=== PATIENT | male | born 2000 | race Caucasian/White ===

== ENCOUNTER 2023-08-16 01:36 | Inpatient (IN) | payer OTHER, SELFPAY ==
[2023-08-16 01:58] VITALS: BP 170/88; PULSE 100; O2SAT 100
[2023-08-16 02:04] VITALS: BP 146/85; PULSE 90; RESP 18; TEMP 37.1; O2SAT 97; BMI 24.0
--- NOTE | 2023-08-16 02:33 | ED_ITS ---
HPI - General Adult General Chief complaint: Behavioral Concerns Stated complaint: PARANOIA X DAYS PER EMS Time Seen by Provider: 08/16/23 01:59 Source: patient and EMS Mode of arrival: EMS Limitations: no limitations History of Present Illness HPI narrative: 23-year-old male came in by ambulance as a family concern about patient behavior and becoming paranoid. Patient stated that he has talked to 2 different therapist in the past but never been diagnosed with mental illness in the past, patient is not taking no medication for any reason, admitted that he smokes tobacco and smokes marijuana occasionally, otherwise patient do not use any recreational drugs, patient lives home with his parents has dogs home, sometimes hear voices talking to him unable to tell me what they tell him, patient otherwise feels anxious and depressed but no SI or HI. No headache, no CP, no SOB, no abdominal pain. Related Data Allergies Allergy/AdvReac Type Severity Reaction Status Date / Time No Known Allergies Allergy Verified 08/16/23 02:14 [No Known Allergies*] Review of Systems 2 Review of Systems: All other systems are reviewed and are negative Constitutional: Reports as per HPI and Reports no additional constitutional complaints Eyes: Reports as per HPI and Reports no additional eye complaints Reports system reviewed and no additional complaints, except as documented Cardiovascular: Reports as per HPI and Reports no additional cardiovascular complaints Respiratory: Reports as per HPI and Reports no additional respiratory complaints Gastrointestinal: Reports as per HPI and Reports no additional gastrointestinal complaints Genitourinary: Reports no additional female genitourinary complaints Musculoskeletal: Reports no additional musculoskeletal complaints Skin/Breast: Reports system reviewed and no additional complaints, except as docu Psychiatric: Reports no additional psychiatric complaints Endocrine: Reports no additional endocrine complaints Hematologic/Lymphatic: Reports no additional hematologic/lymphatic complaints Allergic/Immunologic: Reports no additional allergic/immunologic complaints Reports system reviewed and no additional complaints, except as documented and Reports Abnormal speech present [facility] Social History Social History Smoked in Last 30 Days: Yes Use of substances other than those prescribed or required for medical reasons: Yes Substance Use Type: Marijuana Advance Directives: No Advance Directives Information Provided: No Physical Exam ED Vital Signs: Vital Signs - 24 hr 08/16/23 02:04 08/16/23 03:26 08/16/23 04:28 Temperature 98.7 F 98.5 F 97.7 F Pulse Rate 90 58 98 Respiratory Rate 18 14 18 Blood Pressure 146/85 H 140/76 H 137/72 Pulse Oximetry 97 100 100 Oxygen Delivery Method Room Air Room Air Room Air BMI result Body Mass Index 24.0 Vital signs have been reviewed and appear to be correct. Blood pressure elevated. Heart rate normal. Respiratory rate normal. Temperature normal. Oxygen saturation normal. Appearance: Alert. Oriented X3. No acute distress. Head: Normal external exam. Normocephalic. Atraumatic. No Wong signs noted. No raccoon eyes noted Eyes: PERRLA. EOMI. Conjunctiva and sclera normal. Eyelids normal. ENT: TM's Normal. Pharynx normal. Uvula midline. Moist mucous membranes. No trismus noted. No drooling noted. No muffled voice noted. Neck: Normal inspection. Neck supple. FROM. No adenopathy. Thyroid Normal. No meningeal signs. No neck mass noted. CVS: Normal heart rate and rhythm. Heart sound normal. No murmurs noted. Pulses normal throughout. Respiratory: No respiratory distress. Painless inspiration. Breath sounds normal. No wheezes/rales/rhonchi noted. Chest nontender. No accessory muscle usage noted or decreased air movement noted. Abdomen: Soft and nontender. Bowel sounds normal in all 4 quadrants. No distention noted. No organomegaly noted. No visible injury noted. Back: No CVA tenderness. Full range of motion noted. Skin: Skin warm and dry. Normal skin color. Normal skin turgor. No rashes/lesions/lacerations noted. Extremities: No lower extremity edema. Extremities exhibit normal range of motion. Extremities nontender. Neuro: Oriented X 3. Cranial nerve exam: II-XII are grossly intact No motor deficit. No sensory deficit. Reflexes normal. Patient Orientation: Person, Place, Time and Situation, okay hygiene and grooming. Fair eye contact, attentive, no tics or tremors. Level of Consciousness: Awake, Appropriate and Alert Patient Behavior: Appropriate, Guarded, Cooperative and Anxious Mood Description: Constricted, Blunted and Apprehensive Affect Description: Constricted, Blunted and Apprehensive Patient Cognition Impaired: No Ability to Follow Directions: Excellent Speech Pattern: Clear, Appropriate and Spontaneous Speech, nonpressured, spontaneous with regular rate and rhythm, normal volume and prosody. No dysarthria. Memory Description: Intact, Immediate Intact and Short Term Intact Hallucinations: None Delusions: Not Present Thought Process: Intact Thought Content: positive for Intact, positive for Logical, denies Suicidal Ideation and denies Homicidal Ideation. Depressive Symptoms: Not present. Judgement and Insight: Limited but adequate. Course Reevaluation(s) Reevaluation #1: Will start physician observation, medically cleared await for UA and U tox, care team evaluation. Time: 06:29 Medical Decision Making Differential Diagnosis Differential Diagnoses: The differential diagnosis associated with the presentation includes (Medical clearance, psych evaluation.) Admission/Observation Consideration of admission/observation: Escalation of care including admission/observation considered Lab Data 08/16/23 03:28 08/16/23 03:28 Labs: Lab Results 08/16/23 Range/Units 03:28 WBC 11.2 H (4.8-10.8) X10*3/uL RBC 5.19 (4.60-5.80) X10*6/uL Hgb 14.9 (14.0-18.0) g/dl Hct 43.8 (42.0-52.0) % MCV 84.4 (80.0-98.0) fL MCH 28.7 (27.0-33.0) pg MCHC 34.0 (31.0-36.0) g/dl RDW 12.7 (11.0-16.0) % Plt Count 230 (160-400) X10*3/uL MPV 9.1 L (9.4-12.4) fL Immature Gran % (Auto) 0.3 (0.0-0.4) % Neut % (Auto) 70.5 (45-73) % Lymph % (Auto) 20.7 (20-40) % [place] % (Auto) 7.2 (2-11) % Eos % (Auto) 0.9 (0-4) % Baso % (Auto) 0.4 (0-2) % Lymph # (Auto) 2.3 (1.2-4.9) X10*3/uL [place] # (Auto) 0.8 (0.1-1.2) X10*3/uL Eos # (Auto) 0.1 (0.0-0.4) X10*3/uL Baso # (Auto) 0.1 (0.0-0.2) X10*3/uL Abs Immat Gran (auto) 0.03 (0.00-0.03) X10*3/uL Absolute Neuts (auto) 7.9 (2.0-8.3) x10*3/uL Absolute Nucleated RBC 0.000 (0.0-0.012) X10*3/uL Nucleated RBC % (auto) 0.0 (0.0-0.2) /100WBC Sodium 142 (135-145) mmol/L Potassium 3.9 (3.3-5.1) mmol/L Chloride 105 (96-108) mmol/L Carbon Dioxide 24 (22-29) mmol/L Anion Gap 17 (12-20) BUN 15 (9-16) mg/dL Creatinine 1.01 (0.5-1.4) mg/dL Estim Creat Clear Calc 125.9 Estimated GFR > 60 Random Glucose 90 (60-115) mg/dL Calcium 10.2 (8.4-10.2) mg/dL Discharge Plan Discharge Clinical Impression: Acute anxiety Patient Disposition: Still a Patient
[2023-08-16 03:26] VITALS: BP 140/76; PULSE 58; RESP 14; TEMP 36.9; O2SAT 100
[2023-08-16 03:33] LABS: Basophils Absolute Auto 0.1 X10*3/uL (0.0-0.2); Basophils Percent Auto 0.4 % (0-2); Eosinophils Absolute Auto 0.1 X10*3/uL (0.0-0.4); Eosinophils Percent Auto 0.9 % (0-4); Hematocrit 43.8 % (42.0-52.0); Hemoglobin 14.9 g/dl (14.0-18.0); Imm Gran Abs Auto 0.03 X10*3/uL (0.00-0.03); Imm Gran Pct Auto 0.3 % (0.0-0.4); Lymphocytes Absolute Auto 2.3 X10*3/uL (1.2-4.9); Lymphocytes Percent Auto 20.7 % (20-40); MANUAL DIFF FLAG NO; Mean Corpuscular Hemoglobin 28.7 pg (27.0-33.0); Mean Corpuscular Volume 84.4 fL (80.0-98.0); Mean Platelet Volume 9.1 fL (9.4-12.4); Monocytes Absolute Auto 0.8 X10*3/uL (0.1-1.2); Monocytes Percent Auto 7.2 % (2-11); Neutrophils Absolute Auto 7.9 x10*3/uL (2.0-8.3); Neutrophils Percent Auto 70.5 % (45-73); Platelet Count 230 X10*3/uL (160-400); Red Blood Count 5.19 X10*6/uL (4.60-5.80); Red Cell Distribution Width 12.7 % (11.0-16.0); White Blood Count 11.2 X10*3/uL (4.8-10.8)
[2023-08-16 03:46] LABS: Anion Gap 17 (12-20); Blood Urea Nitrogen 15 mg/dL (9-16); Calcium 10.2 mg/dL (8.4-10.2); Carbon Dioxide 24 mmol/L (22-29); Chloride 105 mmol/L (96-108); Creatinine Clr Calc Pharmacy 125.9; Estimated Glomerular Filt Rate > 60; Glucose Random 90 mg/dL (60-115); Potassium 3.9 mmol/L (3.3-5.1); Sodium 142 mmol/L (135-145)
[2023-08-16 04:28] VITALS: BP 137/72; PULSE 98; RESP 18; TEMP 36.5; O2SAT 100
--- NOTE | 2023-08-16 04:43 | MHC.EDTECH ---
Patient was placed into crisis attire,belongings list completed,and copy placed in chart, all belongings are locked in the pod in the laundry closet. Patient was calm and cooperative with loom changeover operator. Hourly rounds and vitals completed, awaiitng a urine sample at this time,water given per request.
--- NOTE | 2023-08-16 06:24 | MHC.EDTECH ---
Attempted to get a urine sample ,patient stated I will give you one when I have to go. RN aware
[2023-08-16 08:42] VITALS: BP 151/84; PULSE 75; RESP 14; TEMP 37.1; O2SAT 100
--- NOTE | 2023-08-16 08:44 | PC.NURSE ---
Pt is alert and oriented x 4, calm and cooperative. Aware that being here is due to family having concerns for his well being at home although unable to give specifics. States he has no concerns for himself and feels safe at home. Denies SI or HI. Good eye contact. Noted to at times make statements not appropriate to conversation. Such as can you put the pills on my plate no meds were being administered at that time and questioned voiding in drinking cup instead of urine specimen cup provided. Urine obtained/sent. Reports 10/ ankle and back pain. Ankles noted with superficial scabbed cuts that pt states is from ankle weights and reports mid back pain from recently climbing a tree. Ambulatory with a steady gait to bathroom. Ate breakfast. No home meds. Awaits CARE team consult.
[2023-08-16 08:48] LABS: Appearance Urine Clear; Color Urine Yellow; Glucose Urine UA Negative (Negative); Leukocyte Esterase Urine Negative (Negative); Nitrite Urine Negative (Negative); Specific Gravity - Urine 1.015 (1.005-1.025); Urine Blood Negative (Negative); Urine Ketones 15 mg/dL (Negative); Urine Protein Negative (Neg-Trace)
[2023-08-16 08:52] LABS: Amphetamine Screen Urine Not Detected (Not Detect); Barbiturates, Urine Not Detected (Not Detect); Benzodiazepines Screen Urine Not Detected (Not Detect); Cannabinoid Screen Urine POSITIVE (Not Detect); Cocaine Screen Urine Not Detected (Not Detect); Fentanyl, urine Not Detected (Not Detect); Opiate Screen Urine Not Detected (Not Detect); Phencyclidine Screen Urine Not Detected (Not Detect)
--- NOTE | 2023-08-16 09:25 | PC.NURSE ---
Consult with CARE team at this time
--- NOTE | 2023-08-16 10:44 | MHC.CARE ---
Patient evaluated by CARE Team, will need inpatient psychiatric treatment. ED provider Dr. Nagy updated.
--- NOTE | 2023-08-16 12:18 | PC.NURSE ---
Pt is sleeping at this time, 1:1 pt observer at side. +Bedsearch. Godmother here to visit although pt declined a visitor at that time.
--- NOTE | 2023-08-16 16:37 | PC.NURSE ---
this nurse was notified that pt was refusing to come out of the bathroom. pt observed to be standing,responding appropriately to nurses questions. per pt request security called to intervene. pt to go to pod
--- NOTE | 2023-08-16 18:28 | PC.NURSE ---
Pt brought over from main ED to pod, patient present with odd affect, presents with good mood that is not necessarily congruent with situation
[2023-08-16 19:46] VITALS: BP 191/94; PULSE 115; RESP 18
--- NOTE | 2023-08-16 22:49 | MHC.CARE ---
RAD Team [place] bed[place], referral being reviewed by Dru Julian Corrigan, [facility] and [facility]. RAD team to f/u with facilities to see outcome
[2023-08-17 05:16] VITALS: RESP 18
--- NOTE | 2023-08-17 05:51 | PC.NURSE ---
Patient slept through the night, no distress observed/reported, per report patient was during the day engaged well with care team assessment, However as evening progresses patient was quiet, refused to engage in conversation, isolative, starring with glazed look, offered Ativan 2 mg po and Olanzapine 10 mg Po but refused to take, currently in bed appears sleeping, disposition per care team is section 12 inpatient bed search, will continue to monitor.
--- NOTE | 2023-08-17 09:25 | PC.NURSE ---
pt had his cousin Clara come top the ed to visit, pt laying in bed and was asleep, cole delatorre, pt stated that he did not want a visitor, pt was minimally verbal and needed to be asked multiple times, warm blanket provided, covid swab done, pt did not answer any questions initially and then minimally verbal with yes or no responses, clara left a caring note for him with her # on it and i gave it to the pt
[2023-08-17 10:18] LABS: COVID-19 Test Negative (Negative); IDNOW Serial# 08D9AD1C
--- NOTE | 2023-08-17 11:24 | MHC.CARE ---
Call from patient's sister, Yakelin, who said she reached out to some of her brother's close friends trying to understand the sequence of events and what they noticed. On of patient's friends said that he had been experimenting with mushrooms and last week mentioned he wanted to buy more.
[2023-08-17] MEDS: LORazepam 2 MG/ML VIAL IM (11:58)
--- NOTE | 2023-08-17 12:03 | PC.NURSE ---
Treasure ELECTRICAL LINEMAN in to see pt, pt catatonic and ativan 2mg IM ordered and given, pt willingly took it, pt sitting cross legged in bed, nad, skin wpd, no verbal response but held his arm out for the IM
[2023-08-17 13:17] VITALS: BP 147/95; PULSE 89; RESP 16; TEMP 36.9; O2SAT 99
[2023-08-17 14:34] VITALS: BP 138/88; PULSE 111; RESP 20; TEMP 36.3; O2SAT 98
--- NOTE | 2023-08-17 17:16 | PC.ADMIT ---
Pt is a 23 y/o uzbek speaking male admitted from the [facility] ED on a CV. Pt was brought to the ED after his family called the EMS with concerns r/t pts behavioral changes. Pt has been disorganized, delusional, paranoid and AH. Pt has been driving to places in the middle of the night when they are closed, like [employer] in [place], or yelling at step sister for looking at him through the espinoza. Pt was seen by MANAGER OF MERCHANDISING Treasure Chavarria in the ED and appeared catatonic. Pt was given Ativan 2 mg and responded by awaking and becoming verbal. Pt was A&O x3 , thoughts were disorganized. Speech was mumbled at times with poor eye contact. Pt suspicious and says, I noticed my friends have been treating me differently and looking at me different in a bad way . Pt appeared preoccupied and having some thought blocking with delayed responses. Pt initially said he was having AH recently, but then said he wasn't. Pt will engage, but struggles to answer questions that are asked. Pt has no acute medical concerns. Tox screen positive for THC. Pt refused to sign any releases. When signing belongings form he signed TW name instead of his own. Pts skin check completed, skin is intact. Pt refused a flu vaccine when offered. Pt placed on 15 minute checks. Pt refused scheduled Ativan saying, I don't brigido it, thats how I am , reffering to catatonia behavior. Pt educated, but refused.
[2023-08-17] MEDS: LORazepam 1 MG TABLET 2 MG PO (21:39)
[2023-08-18 07:10] VITALS: BP 171/89; PULSE 116; TEMP 36.8; O2SAT 99
--- NOTE | 2023-08-18 08:24 | HO.PSYADMNOT ---
HPI Date of Service: 08/18/23 Chief Complaint: SI Sources of Information: patient interviewed, chart reviewed and crisis/core team assessment reviewed HPI Subjective Notes: Parekh Warning (given and shows understanding) and Conditional Voluntary Narrative: Mr. Meza is a 23 year-old male with no prior hx of psychosis who was brought in by family due to pt presenting with bizarre behaviors reporting people could see him through the wall, thinking people were talking about him or going after him. In the ED his utox was positive for canabinoids. He presented with s/s of catatonia, sitting, staring, minimal verbalization and waxy flexibility. He was given ativan 2mg IM with good effect. On the unit, pt is more talkative but continues to present as internally preoccupied. He reports friends were talking about him. He is not sure about concerns that others had about him as he states I did not hurt anyone. He denies SI/HI. At times some delayed responses which suspect is due to being internally preoccupied. He reports hx of depression for which he had therapy. He denies hx of suicide attempts. He also denies prior hx of psychosis. Pt denies difficulty sleeping but family had reported he was found at night in the car staring. Past Psychiatric History: Inpt: none prior OP: none Hx of suicide attempts: none Past medication trials: none Medical Evaluation Reviewed: Yes [facility] Family History: pt states we all do but I am not sure- referring to parents and sibling hx of mental illness. Social History: pt lives with parents. No children. He reports he works at [employer] and also does stand up Vitrina 3 times a week. Substance History: cannabis on and off for the past 2 years. Trauma History: denies Diagnostics Vital Signs (24Hr): Vital Signs - 24 hr 08/17/23 13:17 08/17/23 14:34 08/18/23 07:10 Temperature 98.4 F 97.3 F 98.2 F Pulse Rate 89 111 H 116 H Respiratory Rate 16 20 Blood Pressure 147/95 H 138/88 171/89 H Pulse Oximetry 99 98 99 Oxygen Delivery Method Room Air Room Air Room Air BMI result Body Mass Index 24.0 Labs 08/16/23 03:28 08/18/23 08:13 Labs: Laboratory Results - last 48 hr 08/16/23 08/17/23 08:37 09:26 Urine Color Yellow Urine Appearance Clear Urine pH 6.0 Ur Specific [place] 1.015 Urine Protein Negative Urine Glucose (UA) Negative Urine Ketones 15 Urine Blood Negative Urine Nitrite Negative Ur Leukocyte Esterase Negative Urine Opiates Screen Not Detected Urine Fentanyl Screen Not Detected Ur Barbiturates Screen Not Detected Ur Phencyclidine Scrn Not Detected Ur Amphetamines Screen Not Detected U Benzodiazepines Scrn Not Detected Urine Cocaine Screen Not Detected U Marijuana (THC) Screen POSITIVE H COVID-19 (АЛЕКСАНДР) Negative COVID-19 Clin Com See Note Meds/Allergies Meds Home Medications Medication Instructions Recorded Confirmed Type No Known Home Meds 08/16/23 08/16/23 History Allergies Allergies Allergy/AdvReac Type Severity Reaction Status Date / Time No Known Allergies Allergy Verified 08/16/23 02:14 [No Known Allergies*] Mental Status Exam Mental Status Exam Narrative: Appearance: wearing hospital gown, fair hygiene, in NAD Behavior: guarded, looking through this credit underwriter at times as internally preoccupied Psychomotor less retardation noted after ativan. Speech: mostly clear, some delayed in response, more spontaneous TP: single word answers TC: confused as to what's going on but in agreement to receive tx Mood: okay Affect: constricted SI: denies HI: denies VH/AH: appears internally preoccupied Delusions: underlying paranoid delusions Insight/judgment: slowly improving Memory/cog: alert, oriented to place, confused as to what brought him here and why others were concerned about him Assessment & Plan Assessment & Plan (1) Psychosis: Status: Acute Code(s): F29 - Unspecified psychosis not due to a substance or known physiological condition Plan Mr. Meza is a 23 year-old male who was brought by family due to presenting with unusual behaviors reporting that he thought people were after him, able to see him through the wall, not sleeping. In the ED, he presented as catatonic- blank stare, mutism, waxy flexibility. Given ativan 2mg IM with good effect. Although somewhat improved he continues to present with delayed response rate, some paranoid delusions although his behavior is more organized. We discussed risks, benefits and alternative treatment options, he agree to try low dose of risperidone 0.5mg po BID. Will continue lower dose of ativan as catatonic symptoms have improved. rule out bipolar disorder. PLAN 1. Admit to M3, CV, 15 minutes checks 2. lower ativan 0.5mg po TID- monitor worsening of catatonia 3. low dose risperidone 0.5mg po BID. 4. obtain collateral information 5. aftercare planning Patient educated on: diagnosis and medication risk/benefits Reason for continued inpatient stay Substantial Risk for: inability to function Statement Statement: I have reviewed the history and physical and performed a pertinent examination on my patient. No changes have occurred unless specified. If the History and Physical was not performed prior to admission, the Hospitalist's service will be consulted for completing the admission physical. Time Spent With Patient Time: Total time managing care of this patient today ____ minutes.
[2023-08-18 08:52] LABS: Estimated Average Glucose 94 mg/dL; Hemoglobin A1c % 4.9 % (<6.0)
[2023-08-18 09:11] LABS: Alanine Aminotransferase 25 U/L (0-40); Albumin Level 4.7 g/dL (3.5-5.0); Alkaline Phosphatase 84 U/L (39-117); Anion Gap 16 (12-20); Aspartate Amino Transferase 36 U/L (5-37); Bilirubin Total 1.7 mg/dL (0.0-1.0); Blood Urea Nitrogen 23 mg/dL (9-16); Calcium 10.4 mg/dL (8.4-10.2); Carbon Dioxide 24 mmol/L (22-29); Chloride 104 mmol/L (96-108); Cholesterol 147 mg/dL (<200); Creatinine Clr Calc Pharmacy 103.3; Estimated Glomerular Filt Rate > 60; Glucose Fasting 80 mg/dL (60-99); HDL Cholesterol 50 mg/dL (>40); LDL Cholesterol Calculated 82 mg/dL (<100); Potassium 4.3 mmol/L (3.3-5.1); Sodium 140 mmol/L (135-145); Triglycerides 76 mg/dL (<150)
[2023-08-18 09:26] LABS: Thyroid Stimulating Hormone 1.03 uIU/mL (0.32-4.0)
[2023-08-18 09:33] LABS: Vitamin B12 328 pg/mL (200-900)
[2023-08-18 14:00] VITALS: BP 131/83; PULSE 70; RESP 18; TEMP 36.9; O2SAT 100
[2023-08-18] MEDS: LORazepam 1 MG TABLET 2 MG PO (15:09)
[2023-08-18 19:50] VITALS: BP 138/81; PULSE 58; RESP 16; TEMP 36.6; O2SAT 99
[2023-08-18] MEDS: LORazepam 0.5 MG TABLET PO (21:08)
[2023-08-18] MEDS: risperiDONE 0.5 MG TABLET PO (21:08)
[2023-08-18 22:00] VITALS: BP 138/80; PULSE 60; RESP 18; TEMP 36.6; O2SAT 99
[2023-08-19 07:35] VITALS: BP 138/85; PULSE 92; RESP 16; TEMP 36.2; O2SAT 97
[2023-08-19] MEDS: risperiDONE 0.5 MG TABLET PO (08:07)
[2023-08-19] MEDS: LORazepam 0.5 MG TABLET PO ×3 (08:07→20:26)
--- NOTE | 2023-08-19 09:07 | PC.NURSE ---
Offered pt a paper copy of the safety tool. Pt showed little interest in completing it, placed it on his bookshelf, and went back to reading his graphic novel. Will attempt to offer safety tool again later.
--- NOTE | 2023-08-19 11:51 | HO.PSYCHPN ---
Subjective Subjective Date of Service: 08/19/23 Reason For Visit: SI Subjective Notes: Conditional Voluntary Interim History: Nursing staff reported the patient had been flat withdrawn, compliant with medications but not attending to any groups. On interview the patient was selectively mute we decided to increase his Risperdal to 1 mg p.o. b.i.d.. Mental Status Exam Mental Status Exam Patient Appearance: Appropriate Patient Orientation: Person and Situation Level of Consciousness: Awake Patient Behavior: Guarded and Suspicious Mood Description: Withdrawn Affect Description: Constricted Patient Cognition Impaired: Yes Ability to Follow Directions: Fair Speech Pattern: Clear Hallucinations: None Delusions: Paranoid Ideation and Ideas of Reference Thought Process: Distracted and Slowed Thinking Thought Content: positive for [place] and positive for Poverty of Content Judgement: Poor Diagnostics Vital Signs (24Hr): Vital Signs - 24 hr 08/18/23 14:00 08/18/23 19:50 08/18/23 22:00 Temperature 98.4 F 97.8 F 97.8 F Pulse Rate 70 58 60 Respiratory Rate 18 16 18 Blood Pressure 131/83 138/81 138/80 Pulse Oximetry 100 99 99 Oxygen Delivery Method Room Air Room Air Room Air 08/19/23 07:35 Temperature 97.1 F Pulse Rate 92 Respiratory Rate 16 Blood Pressure 138/85 Pulse Oximetry 97 Oxygen Delivery Method Room Air BMI result Body Mass Index 24.0 Labs 08/16/23 03:28 08/18/23 08:13 Labs: Laboratory Results - last 48 hr 08/18/23 08:13 Sodium 140 Potassium 4.3 Chloride 104 Carbon Dioxide 24 Anion Gap 16 BUN 23 H Creatinine 1.23 Estim Creat Clear Calc 103.3 Estimated GFR > 60 Fasting Glucose 80 Estimat Average Glucose 94 Hemoglobin A1c % 4.9 Calcium 10.4 H Total Bilirubin 1.7 H AST 36 ALT 25 Alkaline Phosphatase 84 Total Protein 8.0 Albumin 4.7 Triglycerides 76 Cholesterol 147 LDL Cholesterol, Calc 82 HDL Cholesterol 50 Vitamin B12 328 TSH 1.03 Medications Medications Current Medications Acetaminophen (Acetaminophen 325 Mg Tablet) 650 mg PO Q6H PRN PRN Reason: Headache/Pain Mild Scale (1-3) Al Hydroxide/Mg Hydroxide (Magnesium Hydrox/Alum Hydrox 30 Ml Oral.Susp) 30 ml PO Q6H PRN PRN Reason: Heartburn/Nausea Hydroxyzine HCl (Hydroxyzine Hcl 25 Mg Tablet) 25 mg PO Q6H PRN PRN Reason: Anxiety Lorazepam (Lorazepam 0.5 Mg Tablet) 0.5 mg PO TID [facility] Last Admin: 08/19/23 08:07 Dose: 0.5 mg Magnesium Hydroxide (Milk Of Magnesia 30 Ml Oral.Susp) 30 ml PO DAILY PRN PRN Reason: Constipation Nicotine Polacrilex (Nicotine Polacrilex 2 Mg Gum) 2 mg BUCCAL Q2H PRN PRN Reason: Smoking cravings Risperidone (Risperidone 1 Mg Tablet) 1 mg PO BID STEFFANIE Trazodone HCl (Trazodone Hcl 50 Mg Tablet) 50 mg PO BEDTIME PRN PRN Reason: Insomnia Allergies Allergies Allergy/AdvReac Type Severity Reaction Status Date / Time No Known Allergies Allergy Verified 08/16/23 02:14 [No Known Allergies*] Assessment & Plan Assessment & Plan (1) Psychosis: Status: Acute Code(s): F29 - Unspecified psychosis not due to a substance or known physiological condition Plan Mr. Meza is a 23 year-old male who was brought by family due to presenting with unusual behaviors reporting that he thought people were after him, able to see him through the wall, not sleeping. In the ED, he presented as catatonic- blank stare, mutism, waxy flexibility. Given ativan 2mg IM with good effect. Although somewhat improved he continues to present with delayed response rate, some paranoid delusions although his behavior is more organized. We discussed risks, benefits and alternative treatment options, he agree to try low dose of risperidone 0.5mg po BID. Will continue lower dose of ativan as catatonic symptoms have improved. rule out bipolar disorder. PLAN 1. Admit to M3, CV, 15 minutes checks 2. lower ativan 0.5mg po TID- monitor worsening of catatonia 3. low dose risperidone 0.5mg po BID. Increased up to 1 mg po bid on 08/19 4. obtain collateral information 5. aftercare planning Reason for continued inpatient stay Substantial Risk for: inability to function, rapid decompensation and med/psych decompensation Time Spent With Patient Time: Total time managing care of this patient today __20__ minutes.
[2023-08-19 18:00] VITALS: BP 130/84; PULSE 96; RESP 16; TEMP 36.4; O2SAT 96
[2023-08-19] MEDS: risperiDONE 1 MG TABLET PO (20:25)
[2023-08-20 07:30] VITALS: BP 136/74; PULSE 73; RESP 16; TEMP 36.5; O2SAT 99
[2023-08-20] MEDS: LORazepam 0.5 MG TABLET PO ×3 (08:50→22:22)
[2023-08-20] MEDS: risperiDONE 1 MG TABLET PO ×2 (08:50→22:22)
--- NOTE | 2023-08-20 13:46 | HO.PSYCHPN ---
Subjective Subjective Date of Service: 08/20/23 Reason For Visit: SI Subjective Notes: Conditional Voluntary Interim History: The nursing staff reported the patient had presented with some thought blocking, he wants to go with all his books and belongings to the shower and he has some bizarre ideas. He had been more social in the unit. He slept 8 hours. On interview the patient denies new symptoms he reports that he is feeling well. Looks internally preoccupied. Mental Status Exam Mental Status Exam Patient Appearance: Appropriate Patient Orientation: Person and Situation Level of Consciousness: Awake Patient Behavior: Guarded and Suspicious Mood Description: Withdrawn Affect Description: Constricted Patient Cognition Impaired: Yes Ability to Follow Directions: Good Speech Pattern: Clear Hallucinations: None Delusions: Ideas of Reference Thought Process: Distracted and Slowed Thinking Thought Content: positive for [place] and positive for Poverty of Content Judgement: Fair Diagnostics Vital Signs (24Hr): Vital Signs - 24 hr 08/19/23 18:00 08/20/23 07:30 Temperature 97.5 F 97.7 F Pulse Rate 96 73 Respiratory Rate 16 16 Blood Pressure 130/84 136/74 Pulse Oximetry 96 99 Oxygen Delivery Method Room Air Room Air BMI result Body Mass Index 24.0 Labs 08/16/23 03:28 08/18/23 08:13 Medications Medications Current Medications Acetaminophen (Acetaminophen 325 Mg Tablet) 650 mg PO Q6H PRN PRN Reason: Headache/Pain Mild Scale (1-3) Al Hydroxide/Mg Hydroxide (Magnesium Hydrox/Alum Hydrox 30 Ml Oral.Susp) 30 ml PO Q6H PRN PRN Reason: Heartburn/Nausea Hydroxyzine HCl (Hydroxyzine Hcl 25 Mg Tablet) 25 mg PO Q6H PRN PRN Reason: Anxiety Lorazepam (Lorazepam 0.5 Mg Tablet) 0.5 mg PO TID [facility] Last Admin: 08/20/23 08:50 Dose: 0.5 mg Magnesium Hydroxide (Milk Of Magnesia 30 Ml Oral.Susp) 30 ml PO DAILY PRN PRN Reason: Constipation Nicotine Polacrilex (Nicotine Polacrilex 2 Mg Gum) 2 mg BUCCAL Q2H PRN PRN Reason: Smoking cravings Risperidone (Risperidone 1 Mg Tablet) 1 mg PO BID [facility] Last Admin: 08/20/23 08:50 Dose: 1 mg Trazodone HCl (Trazodone Hcl 50 Mg Tablet) 50 mg PO BEDTIME PRN PRN Reason: Insomnia Allergies Allergies Allergy/AdvReac Type Severity Reaction Status Date / Time No Known Allergies Allergy Verified 08/16/23 02:14 [No Known Allergies*] Assessment & Plan Assessment & Plan (1) Psychosis: Status: Acute Code(s): F29 - Unspecified psychosis not due to a substance or known physiological condition Plan Mr. Meza is a 23 year-old male who was brought by family due to presenting with unusual behaviors reporting that he thought people were after him, able to see him through the wall, not sleeping. In the ED, he presented as catatonic- blank stare, mutism, waxy flexibility. Given ativan 2mg IM with good effect. Although somewhat improved he continues to present with delayed response rate, some paranoid delusions although his behavior is more organized. We discussed risks, benefits and alternative treatment options, he agree to try low dose of risperidone 0.5mg po BID. Will continue lower dose of ativan as catatonic symptoms have improved. rule out bipolar disorder. PLAN 1. Admit to M3, CV, 15 minutes checks 2. lower ativan 0.5mg po TID- monitor worsening of catatonia 3. low dose risperidone 0.5mg po BID. Increased up to 1 mg po bid on 08/19, no evidence of side effects. 4. obtain collateral information 5. aftercare planning Reason for continued inpatient stay Substantial Risk for: inability to function, rapid decompensation and med/psych decompensation Time Spent With Patient Time: Total time managing care of this patient today __20__ minutes.
[2023-08-20 20:00] VITALS: BP 129/60; PULSE 54; RESP 18; TEMP 36.4; O2SAT 97
[2023-08-21 07:30] VITALS: BP 138/69; PULSE 65; RESP 14; TEMP 36.2; O2SAT 98
[2023-08-21] MEDS: LORazepam 0.5 MG TABLET PO ×2 (08:30→16:03)
[2023-08-21] MEDS: risperiDONE 1 MG TABLET PO (08:30)
--- NOTE | 2023-08-21 16:03 | HO.PSYCHPN ---
Subjective Subjective Date of Service: 08/21/23 Reason For Visit: SI Interim History: calm, cooperative. feels he is trusting more and his mood is improved. eating, sleeping, getting along OK. agreeable to change all risperidone to HS and to further taper ativan. per staff, flat, withdrawn. guarded. + meds. staring, avolitional. asking about going home. not attending groups. slept about 7 hours. Mental Status Exam Mental Status Exam Narrative: Appearance: wearing street clothes, fair hygiene, in NAD Behavior: relaxed, personable Psychomotor: no PMA/PMR Speech: spontaneous, nml rate, amount, loudness, tone, latency TP: linear, logical TC: no delusions or paranoia expressed Mood: better Affect: flexible SI: none expressed HI: none expressed VH/AH: none expressed Insight/judgment: slowly improving Diagnostics Vital Signs (24Hr): Vital Signs - 24 hr 08/20/23 20:00 08/21/23 07:30 Temperature 97.5 F 97.1 F Pulse Rate 54 65 Respiratory Rate 18 14 Blood Pressure 129/60 138/69 Pulse Oximetry 97 98 Oxygen Delivery Method Room Air Room Air BMI result Body Mass Index 24.0 Labs 08/16/23 03:28 08/18/23 08:13 Medications Medications Current Medications Acetaminophen (Acetaminophen 325 Mg Tablet) 650 mg PO Q6H PRN PRN Reason: Headache/Pain Mild Scale (1-3) Al Hydroxide/Mg Hydroxide (Magnesium Hydrox/Alum Hydrox 30 Ml Oral.Susp) 30 ml PO Q6H PRN PRN Reason: Heartburn/Nausea Hydroxyzine HCl (Hydroxyzine Hcl 25 Mg Tablet) 25 mg PO Q6H PRN PRN Reason: Anxiety Lorazepam (Lorazepam 0.5 Mg Tablet) 0.5 mg PO TID [facility] Last Admin: 08/21/23 08:30 Dose: 0.5 mg Magnesium Hydroxide (Milk Of Magnesia 30 Ml Oral.Susp) 30 ml PO DAILY PRN PRN Reason: Constipation Nicotine Polacrilex (Nicotine Polacrilex 2 Mg Gum) 2 mg BUCCAL Q2H PRN PRN Reason: Smoking cravings Risperidone (Risperidone 1 Mg Tablet) 1 mg PO BID [facility] Last Admin: 08/21/23 08:30 Dose: 1 mg Trazodone HCl (Trazodone Hcl 50 Mg Tablet) 50 mg PO BEDTIME PRN PRN Reason: Insomnia Allergies Allergies Allergy/AdvReac Type Severity Reaction Status Date / Time No Known Allergies Allergy Verified 08/16/23 02:14 [No Known Allergies*] Assessment & Plan Assessment & Plan (1) Psychosis: Status: Acute Code(s): F29 - Unspecified psychosis not due to a substance or known physiological condition Plan Mr. Meza is a 23 year-old male who was brought by family due to presenting with unusual behaviors reporting that he thought people were after him, able to see him through the wall, not sleeping. In the ED, he presented as catatonic- blank stare, mutism, waxy flexibility. Given ativan 2mg IM with good effect. Although somewhat improved he continues to present with delayed response rate, some paranoid delusions although his behavior is more organized. We discussed risks, benefits and alternative treatment options, he agree to try low dose of risperidone 0.5mg po BID. Will continue lower dose of ativan as catatonic symptoms have improved. rule out bipolar disorder. PLAN 1. Admit to M3, CV, 15 minutes checks 2. lower ativan 0.5mg po TID- monitor worsening of catatonia 3. low dose risperidone 0.5mg po BID. Increased up to 1 mg po bid on 08/19, no evidence of side effects. 4. obtain collateral information 5. aftercare planning 08/21: MSE largely WNL. feeling much improved, no longer close to catatonic. agreeable to shift all risperidone to HS and taper ativan further. Reason for continued inpatient stay Substantial Risk for: inability to function and rapid decompensation Time Spent With Patient Time: Total time managing care of this patient today __25__ minutes.
[2023-08-21 20:05] VITALS: BP 134/68; PULSE 66; RESP 18; TEMP 36.5; O2SAT 99
--- NOTE | 2023-08-21 23:35 | PC.NURSE ---
Pt was unable to be woken after multiple attempts; did not receive scheduled HS meds.
[2023-08-22 06:00] VITALS: BP 119/75; PULSE 51; RESP 16; TEMP 36.2; O2SAT 98
[2023-08-22] MEDS: LORazepam 0.5 MG TABLET 0.25 MG PO ×3 (08:22→21:10)
--- NOTE | 2023-08-22 14:51 | HO.PSYCHPN ---
Subjective Subjective Date of Service: 08/22/23 Reason For Visit: SI Interim History: calm, cooperative. highly ambivalent about taking medication. per staff, no dep, anx 6. taking meals, attending groups. unable to be roused for HS meds. slept more than 8 hours. Mental Status Exam Mental Status Exam Narrative: Appearance: wearing street clothes, fair hygiene, in NAD Behavior: relaxed, personable Psychomotor: no PMA/PMR Speech: spontaneous, nml rate, amount, loudness, tone, latency TP: mildly disorganized, circumlocutory TC: no delusions or paranoia expressed Mood: better Affect: flexible SI: none expressed HI: none expressed VH/AH: none expressed Insight/judgment: slowly improving Diagnostics Vital Signs (24Hr): Vital Signs - 24 hr 08/21/23 20:05 08/22/23 06:00 Temperature 97.7 F 97.2 F Pulse Rate 66 51 Respiratory Rate 18 16 Blood Pressure 134/68 119/75 Pulse Oximetry 99 98 Oxygen Delivery Method Room Air Room Air BMI result Body Mass Index 24.0 Labs 08/16/23 03:28 08/18/23 08:13 Medications Medications Current Medications Acetaminophen (Acetaminophen 325 Mg Tablet) 650 mg PO Q6H PRN PRN Reason: Headache/Pain Mild Scale (1-3) Al Hydroxide/Mg Hydroxide (Magnesium Hydrox/Alum Hydrox 30 Ml Oral.Susp) 30 ml PO Q6H PRN PRN Reason: Heartburn/Nausea Hydroxyzine HCl (Hydroxyzine Hcl 25 Mg Tablet) 25 mg PO Q6H PRN PRN Reason: Anxiety Lorazepam (Lorazepam 0.5 Mg Tablet) 0.25 mg PO TID [facility] Stop: 08/22/23 21:01 Last Admin: 08/22/23 08:22 Dose: 0.25 mg Magnesium Hydroxide (Milk Of Magnesia 30 Ml Oral.Susp) 30 ml PO DAILY PRN PRN Reason: Constipation Nicotine Polacrilex (Nicotine Polacrilex 2 Mg Gum) 2 mg BUCCAL Q2H PRN PRN Reason: Smoking cravings Risperidone (Risperidone 2 Mg Tablet) 2 mg PO BEDTIME [facility] Last Admin: 08/21/23 23:30 Dose: Not Given Trazodone HCl (Trazodone Hcl 50 Mg Tablet) 50 mg PO BEDTIME PRN PRN Reason: Insomnia Allergies Allergies Allergy/AdvReac Type Severity Reaction Status Date / Time No Known Allergies Allergy Verified 08/16/23 02:14 [No Known Allergies*] Assessment & Plan Assessment & Plan (1) Psychosis: Status: Acute Code(s): F29 - Unspecified psychosis not due to a substance or known physiological condition Plan Mr. Meza is a 23 year-old male who was brought by family due to presenting with unusual behaviors reporting that he thought people were after him, able to see him through the wall, not sleeping. In the ED, he presented as catatonic- blank stare, mutism, waxy flexibility. Given ativan 2mg IM with good effect. Although somewhat improved he continues to present with delayed response rate, some paranoid delusions although his behavior is more organized. We discussed risks, benefits and alternative treatment options, he agree to try low dose of risperidone 0.5mg po BID. Will continue lower dose of ativan as catatonic symptoms have improved. rule out bipolar disorder. PLAN 1. Admit to M3, CV, 15 minutes checks 2. lower ativan 0.5mg po TID- monitor worsening of catatonia 3. low dose risperidone 0.5mg po BID. Increased up to 1 mg po bid on 08/19, no evidence of side effects. 4. obtain collateral information 5. aftercare planning 08/21: MSE largely WNL. feeling much improved, no longer close to catatonic. agreeable to shift all risperidone to HS and taper ativan further. 08/22: mildly disorganized and circumlocutory today (did not get risperidone last night due to being difficult to rouse, per staff). very ambivalent re taking medications. family mtg tomorrow. complete ativan taper today. told pt to be sure to take HS meds prior to going to bed. Reason for continued inpatient stay Substantial Risk for: inability to function and rapid decompensation Time Spent With Patient Time: Total time managing care of this patient today __25__ minutes.
[2023-08-22 20:15] VITALS: BP 143/85; PULSE 63; RESP 16; TEMP 36.4; O2SAT 100
[2023-08-22] MEDS: risperiDONE 2 MG TABLET PO (21:11)
[2023-08-23 07:25] VITALS: BP 116/53; PULSE 61; RESP 18; TEMP 36.1; O2SAT 99
--- NOTE | 2023-08-23 14:19 | P.PNPSI_ITS ---
Subjective Subjective Date of Service: 08/23/23 Reason For Visit: SI Interim History: hour-long meeting with pt and his parents, DARSHAN Edgar. pt presents as relatively disorganized and tangential. discuss possible sources of psychosis with parents, need for continued antipsychotic medication. plan for discharge monday. per staff, taking medications. anxious. attended 2 of 3 groups during days. smiling, pleasant. had HS meds last NOC. Mental Status Exam Mental Status Exam Narrative: Appearance: wearing street clothes, fair hygiene, in NAD Behavior: relaxed, personable Psychomotor: no PMA/PMR Speech: spontaneous, nml rate, incr amount. nml oudness, tone, latency TP: fairly disorganized, tangential TC: no delusions or paranoia expressed Mood: better Affect: flexible SI: none expressed HI: none expressed VH/AH: none expressed Insight/judgment: slowly improving Diagnostics Vital Signs (24Hr): Vital Signs - 24 hr 08/22/23 20:15 08/23/23 07:25 Temperature 97.5 F 97.0 F Pulse Rate 63 61 Respiratory Rate 16 18 Blood Pressure 143/85 H 116/53 L Pulse Oximetry 100 99 Oxygen Delivery Method Room Air Room Air BMI result Body Mass Index 24.0 Labs 08/16/23 03:28 08/18/23 08:13 Medications Medications Current Medications Acetaminophen (Acetaminophen 325 Mg Tablet) 650 mg PO Q6H PRN PRN Reason: Headache/Pain Mild Scale (1-3) Al Hydroxide/Mg Hydroxide (Magnesium Hydrox/Alum Hydrox 30 Ml Oral.Susp) 30 ml PO Q6H PRN PRN Reason: Heartburn/Nausea Hydroxyzine HCl (Hydroxyzine Hcl 25 Mg Tablet) 25 mg PO Q6H PRN PRN Reason: Anxiety Magnesium Hydroxide (Milk Of Magnesia 30 Ml Oral.Susp) 30 ml PO DAILY PRN PRN Reason: Constipation Nicotine Polacrilex (Nicotine Polacrilex 2 Mg Gum) 2 mg BUCCAL Q2H PRN PRN Reason: Smoking cravings Risperidone (Risperidone 2 Mg Tablet) 2 mg PO BEDTIME [facility] Last Admin: 08/22/23 21:11 Dose: 2 mg Trazodone HCl (Trazodone Hcl 50 Mg Tablet) 50 mg PO BEDTIME PRN PRN Reason: Insomnia Allergies Allergies Allergy/AdvReac Type Severity Reaction Status Date / Time No Known Allergies Allergy Verified 08/16/23 02:14 [No Known Allergies*] Assessment & Plan Assessment & Plan (1) Psychosis: Status: Acute Code(s): F29 - Unspecified psychosis not due to a substance or known physiological condition Plan Mr. Meza is a 23 year-old male who was brought by family due to presenting with unusual behaviors reporting that he thought people were after him, able to see him through the wall, not sleeping. In the ED, he presented as catatonic- blank stare, mutism, waxy flexibility. Given ativan 2mg IM with good effect. Although somewhat improved he continues to present with delayed response rate, some paranoid delusions although his behavior is more organized. We discussed risks, benefits and alternative treatment options, he agree to try low dose of risperidone 0.5mg po BID. Will continue lower dose of ativan as catatonic symptoms have improved. rule out bipolar disorder. PLAN 1. Admit to M3, CV, 15 minutes checks 2. lower ativan 0.5mg po TID- monitor worsening of catatonia 3. low dose risperidone 0.5mg po BID. Increased up to 1 mg po bid on 08/19, no evidence of side effects. 4. obtain collateral information 5. aftercare planning 08/21: MSE largely WNL. feeling much improved, no longer close to catatonic. agreeable to shift all risperidone to HS and taper ativan further. 08/22: mildly disorganized and circumlocutory today (did not get risperidone last night due to being difficult to rouse, per staff). very ambivalent re taking medications. family mtg tomorrow. complete ativan taper today. told pt to be sure to take HS meds prior to going to bed. 08/23: family meeting. pt improved, remains with formal thought disorder. disorganized, tangential. continue current mgmt. planning for monday discharge. Reason for continued inpatient stay Substantial Risk for: inability to function and rapid decompensation Time Spent With Patient Time: Total time managing care of this patient today __70__ minutes.
[2023-08-23 20:00] VITALS: BP 149/63; PULSE 61; RESP 16; TEMP 36.5; O2SAT 99
[2023-08-23] MEDS: risperiDONE 2 MG TABLET PO (20:55)
[2023-08-24 07:34] VITALS: BP 129/59; PULSE 50; RESP 16; TEMP 36.4; O2SAT 99
--- NOTE | 2023-08-24 11:15 | PM.PSYDC ---
DS: Providers Provider Date of Service: 08/24/23 Date of admission: 08/17/23 13:55 Primary care physician: None Physician Consults: 08/16/23 06:28 Consult to Care Team Stat Comment: Reason for consultation: Paranoid DS: Diagnosis Discharge Diagnosis (1) Psychosis: Status: Acute DS: Medications Discharge Medications Home Medications: Previous Rx's Medication Instructions Recorded risperidone 2 mg tablet 2 mg PO BEDTIME 30 days #30 tabs 08/24/23 Mental Status Exam Mental Status Exam Narrative: Appearance: wearing street clothes, fair hygiene, in NAD Behavior: relaxed, personable Psychomotor: no PMA/PMR Speech: spontaneous, nml rate, incr amount. nml oudness, tone, latency TP: moderately disorganized TC: no delusions or paranoia expressed Mood: irritable Affect: flexible, full range, normo-intense, non-labile SI: none HI: none VH/AH: none Insight/judgment: slowly improving Data Data Completed and Pending Completed studies during hospitalization [Text1]: 08/18/23 08:13 Sodium 140 Potassium 4.3 Chloride 104 Carbon Dioxide 24 Anion Gap 16 BUN 23 H Creatinine 1.23 Estim Creat Clear Calc 103.3 Estimated GFR > 60 Fasting Glucose 80 Estimat Average Glucose 94 Hemoglobin A1c % 4.9 Calcium 10.4 H Total Bilirubin 1.7 H AST 36 ALT 25 Alkaline Phosphatase 84 Total Protein 8.0 Albumin 4.7 Triglycerides 76 Cholesterol 147 LDL Cholesterol, Calc 82 HDL Cholesterol 50 Vitamin B12 328 TSH 1.03 DS: Summary Hospital Course Hospital Course: per 08/18 admission note: Mr. Meza is a 23 year-old male with no prior hx of psychosis who was brought in by family due to pt presenting with bizarre behaviors reporting people could see him through the wall, thinking people were talking about him or going after him. In the ED his utox was positive for canabinoids. He presented with s/s of catatonia, sitting, staring, minimal verbalization and waxy flexibility. He was given ativan 2mg IM with good effect. On the unit, pt is more talkative but continues to present as internally preoccupied. He reports friends were talking about him. He is not sure about concerns that others had about him as he states I did not hurt anyone. He denies SI/HI. At times some delayed responses which suspect is due to being internally preoccupied. He reports hx of depression for which he had therapy. He denies hx of suicide attempts. He also denies prior hx of psychosis. Pt denies difficulty sleeping but family had reported he was found at night in the car staring. Past Psychiatric History: Inpt: none prior OP: none Hx of suicide attempts: none Past medication trials: none Medical Evaluation Reviewed: Yes PMF Family History: pt states we all do but I am not sure- referring to parents and sibling hx of mental illness. Social History: pt lives with parents. No children. He reports he works at [employer] and also does stand [employer] 3 times a week. Substance History: cannabis on and off for the past 2 years. Trauma History: denies Precis: Mr. Meza is a 23 year-old male who was brought by family due to presenting with unusual behaviors reporting that he thought people were after him, able to see him through the wall, not sleeping. In the ED, he presented as catatonic- blank stare, mutism, waxy flexibility. Given ativan 2mg IM with good effect. Although somewhat improved he continues to present with delayed response rate, some paranoid delusions although his behavior is more organized. We discussed risks, benefits and alternative treatment options, he agree to try low dose of risperidone 0.5mg po BID. Will continue lower dose of ativan as catatonic symptoms have improved. rule out bipolar disorder. 08/18: Admit to M3, CV, 15 minutes checks. lower ativan 0.5mg po TID- monitor worsening of catatonia. low dose risperidone 0.5mg po BID. Increased up to 1 mg po bid on 08/19, no evidence of side effects. obtain collateral information. aftercare planning 08/21: MSE largely WNL. feeling much improved, no longer close to catatonic. agreeable to shift all risperidone to HS and taper ativan further. 08/22: mildly disorganized and circumlocutory today (did not get risperidone last night due to being difficult to rouse, per staff). very ambivalent re taking medications. family mtg tomorrow. complete ativan taper today. told pt to be sure to take HS meds prior to going to bed. 08/23: family meeting. pt improved, remains with formal thought disorder. disorganized, tangential. continue current mgmt. planning for christiano discharge. : stable. calm, cooperative. meds reviewed, reconciled, prescribed. 08/24: discharged to home as per plan. Time Spent with Patient Time attestation: Total time managing care of this patient today ____ minutes. Time spent: Greater than 30 minutes Discharge Plan Discharge Anticipated Discharge Date/Time: 08/25/23 10:00 Patient Disposition: Home, Self-Care Discharge Diagnosis: Psychotic Episode Referrals: Na Ramos (Therapy) [Other] - 08/29/23 10:00 am (IN OFFICE APPOINTMENT -Please arrive fifteen minutes early to your appointment in order to fill out necessary paperwork. ) Yaritza Perez (Psychiatry) [Other] - 09/27/23 11:00 am (TELEHEALTH APPOINTMENT -Psychiatric Evaluation ) Yaritza Perez (Psychiatry) [Other] - 10/25/23 10:00 am (TELEHEALTH APPOINTMENT -Medication Management ) [facility] [Provider Group] - 1 Week (No PCP on file, [facility] has been assigned as PCP.) Discharge Medications: New risperidone 2 mg Tablet 2 mg PO BEDTIME 30 Days Qty: 30 1RF Discharge Orders: Discharge Order (Routine); Ordered 08/25/23 Ordered By: Keenan Vazquez Diet: Advance to usual diet Activity on Discharge: As tolerated Stand Alone Forms: Patient Portal Discharge page, Community Support Care Plan Goals: remain safe and stable in the outpatient treatment setting Health Concerns: none Plan of Treatment: take medications as prescribed, attend appointments as scheduled Assessment: not at imminent risk of harm to self or others Discharge Date/Time: 08/25/23 10:10
[2023-08-24 14:11] VITALS: BMI 24.6
[2023-08-24] MEDS: risperiDONE 2 MG TABLET PO (19:50)
[2023-08-24 20:17] VITALS: BP 132/64; PULSE 73; RESP 16; TEMP 36.6; O2SAT 98
[2023-08-25 08:20] VITALS: BP 124/70; PULSE 56; RESP 16; TEMP 36.1; O2SAT 98
== END 2023-08-25 10:10 | disposition home or self-care (01) | DRG 751 ==
LOC: HO.ED 08-17 13:28 → HO.PADLT16 08-17 14:02
PROVIDERS: Social Worker; Admitting Provider Psychiatry & Neurology Psychiatry; Emergency Provider Emergency Medicine; Visit Provider Psychiatry & Neurology Psychiatry
DX: F29 Unspecified psychosis not due to a substance or known physiological condition (principal); F17.210 Nicotine dependence, cigarettes, uncomplicated; Z20.822 Contact with and (suspected) exposure to COVID-19; Z71.6 Tobacco abuse counseling; Z79.899 Other long term (current) drug therapy
CPT/HCPCS: 36415; 80048; 80053; 80061; 80307; 81003; 82607; 83036; 84443; 85025; 87635; 99285; J2060; S9485

== ENCOUNTER → 2023-08-17 13:55 | Outpatient (BNV) | payer OTHER, SELFPAY | PROVIDERS: Admitting Provider Psychiatry & Neurology Psychiatry; Emergency Provider Emergency Medicine; Visit Provider Psychiatry & Neurology Psychiatry | DX: F33.1 Major depressive disorder, recurrent, moderate (principal); F29 Unspecified psychosis not due to a substance or known physiological condition | CPT/HCPCS: 90792; 99231; 99232; 99233; 99238 ==

== ENCOUNTER 2025-04-04 13:21 | Outpatient (REF) | payer SELFPAY ==
[2025-04-04 18:17] LABS: MANUAL DIFF FLAG NO
[2025-04-04 18:22] LABS: Hematocrit 41.6 % (42.0-52.0); Hemoglobin 14.0 g/dl (14.0-18.0); Imm Gran Abs Auto 0.02 X10*3/uL (0.00-0.03); Imm Gran Pct Auto 0.2 % (0.0-0.4); Lymphocytes Absolute Auto 2.1 X10*3/uL (1.2-4.9); Mean Corpuscular HGB Conc 33.7 g/dl (31.0-36.0); Mean Corpuscular Hemoglobin 28.0 pg (27.0-33.0); Mean Corpuscular Volume 83.2 fL (80.0-98.0); NRBC Abs Auto 0.000 X10*3/uL (0.0-0.012); NRBC Pct Auto 0.0 /100WBC (0.0-0.2); Platelet Count 240 X10*3/uL (160-400); Red Blood Count 5.00 X10*6/uL (4.60-5.80); White Blood Count 8.1 X10*3/uL (4.8-10.8)
[2025-04-04 18:40] LABS: Anion Gap 10 (12-20); Blood Urea Nitrogen 17 mg/dL (9-16); Calcium 9.9 mg/dL (8.4-10.2); Carbon Dioxide 27 mmol/L (22-29); Chloride 108 mmol/L (96-108); Cholesterol 161 mg/dL (<200); Estimated Glomerular Filt Rate > 60; HDL Cholesterol 48 mg/dL (>40); Potassium 4.1 mmol/L (3.3-5.1); Sodium 141 mmol/L (135-145); Triglycerides 151 mg/dL (<150)
[2025-04-05 03:09] LABS: CT PCR Urine NOT DETECTED (Not Detect.); NG PCR Urine NOT DETECTED (Not Detect.)
[2025-04-05 08:44] LABS: HIV Num 1 0.06 S/CO (0.00-0.99); ~HepC Num1 0.11 S/CO (0.00-0.79); ~Hepatitis C Antibody Nonreactive (Nonreactive)
== END 2025-04-04 13:22 | disposition home or self-care (01) ==
LOC: HO.CHCLDS 13:21
DX: Z00.00 Encounter for general adult medical examination without abnormal findings (principal); Z13.6 Encounter for screening for cardiovascular disorders; Z11.4 Encounter for screening for human immunodeficiency virus [HIV]; Z20.2 Contact with and (suspected) exposure to infections with a predominantly sexual mode of transmission
CPT/HCPCS: 80048; 80061; 85025; 86592; 86803; 87389; 87491; 87591